=== PATIENT | female | born 1960 | race African-American/Black ===

== ENCOUNTER → 2017-11-13 | Outpatient (CLI) | payer OTHER ==
[~2017-11-13] MED LIST: ASPI325T17 PO; HYDR-3240 PO; HYDR-3307 PO; HYDR-3653 PO; HYDR25TA6 PO; MELO15TA24 PO; NAPR-685 PO; NAPROXEN PO; OXYC10TA6 PO; TRAM50TA2 PO
== END | disposition home or self-care (01) ==
LOC: CFH 11:22
PROVIDERS: ATTEND Family Medicine
DX: K76.0 Fatty (change of) liver, not elsewhere classified (principal); Z90.49 Acquired absence of other specified parts of digestive tract
CPT/HCPCS: 76700

== ENCOUNTER 2018-02-25 19:53 | Emergency (ER) | payer OTHER ==
[~2018-02-25] VITALS: Ht 162.6 cm; Wt 87.3 kg
--- NOTE | 2018-02-25 20:44 | NUR ---
PT A&OX4, RESP EVEN & UNLABORED, SPEECH CLEAR, SKIN WNL (PT STATES SHE FEELS CLAMMY). C/O RLQ PAIN, INTERMITTENT & SHARP, STARTED 3 MOS AGO, "GETS PROGRESSIVELY WORSE", "I COULDN'T TAKE IT ANYMORE". HAS TRIED METAMUCIL (LAST DOSE MONDAY) - "I HAD TO STOP IT 'DANA IT MADE ME FEEL BLOATED". WAS AT [facility] ON [address] IN [place] ON MONDAY. COLONOSCOPY "A COUPLE OF YEARS AGO". LAST BM: THIS AFTERNOON. LAST ORAL INTAKE: 1800 TODAY. NO PAIN MEDS TAKEN TODAY. PT'S FIANCE IN ROOM.
[2018-02-25] MEDS ORDERED: MORPHINE SULFATE 4 MG/ML, 1ML ONE ×2 (20:58→22:08)
[2018-02-25] MEDS ORDERED: SODIUM CHLORIDE FLUSH 10ML SYR IVF ONE (21:00)
[2018-02-25 21:03] LABS: MICROSCOPIC NOT IND
[2018-02-25 21:05] LABS: CULTURE INDICATED? NO
[2018-02-25 21:11] LABS: ALANINE AMINOTRANSFERASE 36 U/L (12-78); ALBUMIN 3.8 g/dL (3.4-5.0); ANION GAP 10 mmol/L (5-15); CALCIUM 9.7 mg/dL (8.5-10.1); CHLORIDE 106 mmol/L (98-107)
[2018-02-25] MEDS: MORPHINE SULFATE 4 MG/ML, 1ML IVPush PRN ×2 (21:12→22:12)
[2018-02-25 21:14] LABS: ALKALINE PHOSPHATASE 108 U/L (45-117); BASOPHILS # (AUTO) 0.03 x10^3/uL (0-0.1); BASOPHILS % (AUTO) 0 % (0-1); BILIRUBIN,TOTAL 0.3 mg/dL (0.2-1.0); EOSINOPHILS % (AUTO) 3 % (1-7); LYMPHOCYTES # (AUTO) 3.43 x10^3/uL (1-3.4); LYMPHOCYTES % (AUTO) 53 % (22-44); MD NO; MEAN CORPUSCULAR HEMOGLOBIN 31.4 pg (27.0-34.8); MEAN CORPUSCULAR HGB CONC 33.8 g/dL (32.4-35.8); MEAN CORPUSCULAR VOLUME 92.7 fL (80-100); MEAN PLATELET VOLUME 7.7 fL (7.4-10.4); MONOCYTES # (AUTO) 0.39 x10^3/uL (0.2-0.8); MONOCYTES % (AUTO) 6 % (2-9); NEUTROPHILS # (AUTO) 2.49 x10^3/uL (1.8-6.8); NEUTROPHILS % (AUTO) 38 % (42-75); PLATELET COUNT 254 x10^3/uL (130-400); RED CELL DISTRIBUTION WIDTH 13.5 % (9.6-15.2); TOTAL PROTEIN 7.9 g/dL (6.4-8.2)
--- NOTE | 2018-02-25 21:19 | NUR ---
MORPHINE GIVEN PER EMAR. PT NOW REPORTS SOME RELIEF OF PAIN. SIDE RAILS UP X1, CALL LIGHT W/IN REACH, FIANCE AT BS. PT AWAITING CT.
[2018-02-25] MEDS ORDERED: OMNIPAQUE 350 MG/ML, 100ML BOTTLE ONE (21:40)
--- NOTE | 2018-02-25 21:55 | NUR ---
PT AMBULATORY TO [facility] W/ STEADY GAIT, ACCOMPANIED BY FIANCE.
--- NOTE | 2018-02-25 22:01 | NUR ---
PT REPORT FROM ORIANA RIVERA. THIS RN TO ASSUME CARE OF PT. AMB W/ STEADY GAIT TO RR. AWAITING CT RESULTS. NO IMMEDIATE NEEDS FROM PT.
[2018-02-25 22:12] VITALS: BP 127/70
== END 2018-02-25 22:52 | disposition home or self-care (01) ==
LOC: ED 20:48
DX: R10.31 Right lower quadrant pain (principal); I10 Essential (primary) hypertension; Z90.49 Acquired absence of other specified parts of digestive tract
CPT/HCPCS: 36415; 74177; 80053; 81003; 85025; 96374; 96376; 99284; Q9967

== ENCOUNTER 2019-07-26 08:00 | Outpatient (CLI) | payer OTHER ==
[~2019-07-26 08:00] MED LIST changes: +HYDR-3246 PO; -HYDR-3307 PO
== END 2019-07-26 23:59 | disposition home or self-care (01) ==
LOC: CVU 08:00
PROVIDERS: ATTEND Internal Medicine Cardiovascular Disease
DX: I36.1 Nonrheumatic tricuspid (valve) insufficiency (principal); I10 Essential (primary) hypertension; R94.31 Abnormal electrocardiogram [ECG] [EKG]
CPT/HCPCS: 93306

== ENCOUNTER → 2019-08-02 | Outpatient (CLI) | payer OTHER | END | disposition home or self-care (01) | LOC: CFH 08:12 | PROVIDERS: ATTEND Internal Medicine Cardiovascular Disease | DX: R94.31 Abnormal electrocardiogram [ECG] [EKG] (principal); I10 Essential (primary) hypertension | CPT/HCPCS: 78452; 93017; A9502 ==

== ENCOUNTER → 2019-08-29 | Outpatient (CLI) | payer OTHER | END | disposition home or self-care (01) | LOC: CFH 07:29 | PROVIDERS: ATTEND Family Medicine | DX: Z12.31 Encounter for screening mammogram for malignant neoplasm of breast (principal); T85.49XA Other mechanical complication of breast prosthesis and implant, initial encounter; Y83.8 Other surgical procedures as the cause of abnormal reaction of the patient, or of later complication, without mention of misadventure at the time of the procedure; Y92.89 Other specified places as the place of occurrence of the external cause | CPT/HCPCS: 77067 ==

== ENCOUNTER 2019-09-04 07:53 | Day surgery (SDC) | payer OTHER ==
[~2019-09-04] VITALS: Ht 162.6 cm; Wt 84.1 kg
[2019-09-04 08:28] VITALS: BP 122/83
[2019-09-04] MEDS ORDERED: METO25TA91 PO (08:28)
[2019-09-04] MEDS ORDERED: ASPI81TA45 PO (08:28)
[2019-09-04 09:00] LABS: BASOPHILS # (AUTO) 0.08 x10^3/uL (0-0.1); BASOPHILS % (AUTO) 1 % (0-1); EOSINOPHILS # (AUTO) 0.18 x10^3/uL (0-0.4); EOSINOPHILS % (AUTO) 3 % (1-7); LYMPHOCYTES # (AUTO) 3.03 x10^3/uL (1-3.4); LYMPHOCYTES % (AUTO) 49 % (22-44); MD NO; MEAN CORPUSCULAR HEMOGLOBIN 30.5 pg (27.0-34.8); MEAN PLATELET VOLUME 7.5 fL (7.4-10.4); MONOCYTES % (AUTO) 7 % (2-9); NEUTROPHILS # (AUTO) 2.55 x10^3/uL (1.8-6.8); NEUTROPHILS % (AUTO) 41 % (42-75); PLATELET COUNT 257 x10^3/uL (130-400); RED BLOOD COUNT 4.38 x10^6/uL (3.82-5.3); RED CELL DISTRIBUTION WIDTH 13.7 % (9.6-15.2)
[2019-09-04 09:08] LABS: INTERNATIONAL NORMALIZED RATIO 0.94 (0.93-1.1)
[2019-09-04] MEDS ORDERED: LIDOCAINE 2%, 20ML ONE (09:14)
[2019-09-04] MEDS ORDERED: MIDAZOLAM 1 MG/ML, 2ML ONE (09:14)
[2019-09-04] MEDS ORDERED: FENTANYL PF 100 MCG/2ML ONE (09:14)
[2019-09-04 09:19] LABS: ANION GAP 8 mmol/L (5-15); CALCIUM 9.7 mg/dL (8.5-10.1); CHLORIDE 107 mmol/L (98-107); CREATININE 0.96 mg/dL (0.55-1.02)
[2019-09-04] MEDS ORDERED: OXYcodone/APAP 5/325MG TABLET ONE (10:42)
[2019-09-04] MEDS ORDERED: OXYcodone/APAP 5/325MG TABLET PO ONE (11:00)
== END 2019-09-04 12:40 | disposition home or self-care (01) ==
LOC: CACL 07:53
PROVIDERS: ATTEND Internal Medicine Cardiovascular Disease
DX: R94.39 Abnormal result of other cardiovascular function study (principal); I20.8 Other forms of angina pectoris; I10 Essential (primary) hypertension; E89.0 Postprocedural hypothyroidism; E66.9 Obesity, unspecified; Z68.35 Body mass index [BMI] 35.0-35.9, adult; Z79.01 Long term (current) use of anticoagulants; Z79.82 Long term (current) use of aspirin; Z79.899 Other long term (current) drug therapy; Z87.891 Personal history of nicotine dependence; Z90.49 Acquired absence of other specified parts of digestive tract; Z90.710 Acquired absence of both cervix and uterus; Z82.3 Family history of stroke; Z82.49 Family history of ischemic heart disease and other diseases of the circulatory system
CPT/HCPCS: 36415; 80048; 85025; 85610; 93458; 99156; C1760; C1769; C1894; J2250; J3010; Q9967